=== PATIENT | male | born 1980 | race Caucasian/White ===

== ENCOUNTER 2018-03-18 09:23 | Day surgery (SDC) | payer OTHER ==
[~2018-03-18] VITALS: Ht 172.7 cm; Wt 111.6 kg
[~2018-03-18 09:23] MED LIST: FERROUS SULFAT325 MG PO; LISINOPRIL-HCT1 EAC2 PO; VITAMIN C250 MG PO
--- NOTE | 2018-03-18 10:44 | NUR ---
03/18/18 [facility] Renetta Campbell 1038-PATIENT ARRIVED TO PACU ON 5L OM WEANED TO 3L O2 SAT 98% PATIENT DROWSY AWAKE DENIES PAIN OR NAUSEA. ABDOMEN SOFT ENCOURAGED TO PASS FLATUS. RR EVEN.
--- NOTE | 2018-03-19 06:53 | OR ---
[facility] [address], [place] [address] Signed DATE OF OPERATION: 03/18/2018 SURGEON: Yue Segovia MD PROCEDURE PERFORMED: Upper and lower endoscopy. PREOPERATIVE DIAGNOSES: 1. Anemia. 2. Guaiac-positive stool. POSTOPERATIVE DIAGNOSES: 1. Mild diffuse gastritis. 2. Tiny hiatal hernia. 3. Tiny internal hemorrhoids. PROCEDURES: 1. EGD with CLOtest and biopsies of the antrum and GE junction. 2. Colonoscopy without biopsy. ESTIMATED BLOOD LOSS: None. INDICATIONS: Christo is a 37-year-old gentleman asked to see me for upper and lower endoscopy. He was found to be anemic in 2016 and again recently. Three out of six guaiac cards came back positive. He really has very little in the way of upper and lower GI complaints. There is no family history of colon cancer or polyps. I gave Christo a pamphlet on upper and lower endoscopy and we looked at that together along with the risks including, but not limited to gas bloating, crampy abdominal pain, bleeding, perforation, requiring surgery, and missed diagnosis. We also discussed the need for IV conscious sedation. He had expressed understanding and wish to proceed. DESCRIPTION OF PROCEDURE: Christo was taken into our endoscopy suite and placed in a supine semi-recumbent position. He was given a total of 10 mg of Versed and 200 mcg fentanyl to cover both cases. The posterior oropharynx was anesthetized with Hurricaine spray. A bite block was utilized for the case. The adult gastroscope was introduced and advanced all the way out into the third portion of the duodenum under direct visualization of camera without difficulty. The duodenum and pyloric channel were fine. His stomach showed mild Electronically Signed By: YUE SEGOVIA MD 03/19/18 0653 PATIENT NAME: CHRISTO SIMPSON OPERATIVE REPORT DATE OF : 80 REPORT #: [id number] PHYSICIAN: YUE SEGOVIA MD PCP: AMAYA MEDRANO MD REPORT IS CONFIDENTIAL AND NOT TO BE RELEASED WITHOUT AUTHORIZATION [facility] [address], [place] [address] Signed diffuse erythematous changes throughout. We took a biopsy of the antrum for CLOtest as well as pathologic review. Upon retroflexion of scope, it looks like he has just a just a little bit of his stomach getting cold on one side of the area of the GE junction. There were no obvious ulcerations. No gastric or esophageal varices. The scope was withdrawn up through the area of the GE junction, which was compliant without stricture. There was very minimal disruption to his Z-line. There was no Summers's mucosa, no distal esophagitis. We went and took a biopsy from the GE junction along the Z-line. The middle and upper esophagus were unremarkable. After this, the gas was suctioned out and the gastroscope removed. Christo tolerated the procedure quite well. Christo was then rotated into the left lateral decubitus position. He was maintained on IV sedation with Versed and fentanyl. A digital rectal exam was performed and this was unremarkable other than some perianal and bilateral gluteal acne with some irritation, probably from sitting in the chair all day with his computer. The adult colonoscope was introduced and advanced all the way around into the cecum under direct visualization of camera without difficulty. His prep was quite good. The scope was then slowly withdrawn. We saw no pathology throughout the entire colon or rectum. Upon retroflexion of scope, he has very minimal internal anal hemorrhoid tissue. After this, the gas was suctioned out and the colonoscope removed. Christo tolerated the procedure quite well. RECOMMENDATIONS: I will see Christo back in my office in 7 to 14 days to review his results. Yue Segovia MD ALB/MODL /[id number] cc: MD Radha Kang PA-C Copies: YUE SEGOVIA MD Electronically Signed By: YUE SEGOVIA MD 03/19/18 0653 PATIENT NAME: CHRISTO SIMPSON OPERATIVE REPORT DATE OF : 80 REPORT #: [id number] PHYSICIAN: YUE SEGOVIA MD PCP: AMAYA MEDRANO MD REPORT IS CONFIDENTIAL AND NOT TO BE RELEASED WITHOUT AUTHORIZATION [facility] [address], [place] [address] Signed RADHA CALVILLO Electronically Signed By: YUE SEGOVIA MD 03/19/18 0653 PATIENT NAME: CHRISTO SIMPSON BON OPERATIVE REPORT DATE OF : 80 REPORT #: [id number] PHYSICIAN: YUE SEGOVIA MD PCP: AMAYA MEDRANO MD REPORT IS CONFIDENTIAL AND NOT TO BE RELEASED WITHOUT AUTHORIZATION
== END 2018-03-18 11:27 | disposition home or self-care (01) ==
LOC: OPS 09:23 → DS 09:23 → OPS 10:00
PROVIDERS: Colon & Rectal Surgery
PROC: 0DB78ZX Excision of Stomach, Pylorus, Via Natural or Artificial Opening Endoscopic, Diagnostic (ICD-10-PCS; 2018-03-18)
PROC: 0DJD8ZZ Inspection of Lower Intestinal Tract, Via Natural or Artificial Opening Endoscopic (ICD-10-PCS; principal; 2018-03-18 10:00)
PROC: 0DB48ZX Excision of Esophagogastric Junction, Via Natural or Artificial Opening Endoscopic, Diagnostic (ICD-10-PCS; 2018-03-18 10:00)
DX: K64.8 Other hemorrhoids (principal); K29.50 Unspecified chronic gastritis without bleeding; K20.9 Esophagitis, unspecified; D64.9 Anemia, unspecified; K44.9 Diaphragmatic hernia without obstruction or gangrene; E66.9 Obesity, unspecified; Z79.899 Other long term (current) drug therapy; Z68.37 Body mass index [BMI] 37.0-37.9, adult
CPT/HCPCS: 86677; 99153; G0500; J2250; J3010; J7120